=== PATIENT | female | born 1960 | race African-American/Black ===

== ENCOUNTER → 2020-02-09 | Outpatient (CLI) | payer OTHER ==
[~2020-02-09] MED LIST: AMLO-211 PO; ESTR0.3T PO
== END | disposition home or self-care (01) ==
LOC: CFH 11:12
PROVIDERS: ATTEND Family Medicine
DX: Z12.31 Encounter for screening mammogram for malignant neoplasm of breast (principal)
CPT/HCPCS: 77067

== ENCOUNTER → 2020-05-09 | Outpatient (CLI) | payer OTHER | END | disposition home or self-care (01) | LOC: CVU 12:45 | PROVIDERS: ATTEND Internal Medicine Cardiovascular Disease | DX: I08.8 Other rheumatic multiple valve diseases (principal); I49.3 Ventricular premature depolarization | CPT/HCPCS: 93306 ==

== ENCOUNTER 2020-09-26 11:38 | Emergency (ER) | payer OTHER ==
[~2020-09-26] VITALS: Ht 165.1 cm; Wt 91.3 kg
--- NOTE | 2020-09-26 12:10 | NUR ---
Pt in room, steady and symmetrical gait noted upon arrival. Pt pleasant to speak with, reports no symptoms. States she was at the pulmonary clinic for sleep evaluation when the provider noted HR in 40s - pt had no symptoms, sent to ED for eval. IV est. and labs collectd. Awaiting MD del angel.
[2020-09-26 13:05] LABS: BASOPHILS % (AUTO) 1 % (0-1); EOSINOPHILS % (AUTO) 3 % (1-7); LYMPHOCYTES % (AUTO) 40 % (22-44); MEAN CORPUSCULAR HEMOGLOBIN 31.4 pg (27.0-34.8); MEAN CORPUSCULAR HGB CONC 33.4 g/dL (32.4-35.8); MEAN PLATELET VOLUME 9.4 fL (7.4-10.4); MONOCYTES % (AUTO) 12 % (2-9); NEUTROPHILS % (AUTO) 44 % (42-75); PLATELET COUNT 206 x10^3/uL (130-400); RED BLOOD COUNT 4.25 x10^6/uL (3.82-5.3); RED CELL DISTRIBUTION WIDTH 14.3 % (9.6-15.2)
--- NOTE | 2020-09-26 13:09 | NUR ---
REPORT OF PT TO DANNY TRINIDAD. ALL QUESTIONS ANSWERED.
[2020-09-26 13:17] LABS: ALBUMIN 3.5 g/dL (3.4-5.0); ANION GAP 6 mmol/L (5-15); CALCIUM 8.7 mg/dL (8.5-10.1); CHLORIDE 108 mmol/L (98-107)
[2020-09-26 13:29] LABS: ALANINE AMINOTRANSFERASE 30 U/L (12-78); ALKALINE PHOSPHATASE 74 U/L (45-117); BILIRUBIN,TOTAL 0.5 mg/dL (0.2-1.0); CREATININE 1.11 mg/dL (0.55-1.02)
[2020-09-26 14:06] VITALS: BP 142/75
--- NOTE | 2020-09-26 14:07 | NUR ---
PT VSS AND UPDATED IN EMR
== END 2020-09-26 15:03 | disposition home or self-care (01) ==
LOC: ED 14:20
DX: R00.1 Bradycardia, unspecified (principal); G47.30 Sleep apnea, unspecified; R00.2 Palpitations
CPT/HCPCS: 36415; 80053; 83735; 84443; 85025; 93005; 99284